=== PATIENT | female | born 1965 | race Caucasian/White ===

== ENCOUNTER 2019-08-25 18:14 | Emergency (ER) | payer MEDICARE, MEDICAID, SELFPAY ==
[2019-08-25 18:22] VITALS: BP 136/79; PULSE 78; RESP 16; TEMP 36.6; O2SAT 100
--- NOTE | 2019-08-25 18:57 | ED.GENADULT ---
HPI - General Adult General Chief complaint: Upper Respiratory Infection Stated complaint: SORE THROAT/EARACHE Time Seen by Provider: 08/25/19 18:40 Source: patient Mode of arrival: ambulatory Limitations: no limitations History of Present Illness HPI narrative: 54-year-old female presents for evaluation of sore throat, left ear pain, cough, clear drainage, body aches that is been present for 3 days. She has not used any medications for this. She has history of MS. She has been exposed to sick contacts at work. Did not get a flu shot this season. Non-smoker, denies any other medical problems. Denies any shortness of breath, chest pain, wheezing, headache, rash, abnormal swelling. Related Data Home Medications Medication Instructions Recorded Confirmed Gilenya 08/25/19 baclofen mg 08/25/19 magnesium oxide 08/25/19 paroxetine HCl mg PO 08/25/19 topiramate 08/25/19 08/25/19 Allergies Allergy/AdvReac Type Severity Reaction Status Date / Time codeine Allergy Unknown Rash Unverified 08/25/19 18:25 prednisone Allergy Rash Verified 08/25/19 18:25 Review of Systems Review of Systems: Narrative: CONSTITUTIONAL: Denies fever, chills, weight loss, or sweats. EYES: Denies visual changes, redness, or discharge. ENT: Reports rhinorrhea, congestion, sore throat, left otalgia. CARDIOVASCULAR: Denies chest pain, palpitations, or edema. RESPIRATORY: Denies dyspnea. Reports cough GASTROINTESTINAL: Denies abdominal pain, nausea, vomiting, or diarrhea. GENITOURINARY: Denies dysuria, hematuria, urinary frequency, malordous urine SKIN: Denies rash or itching. MUSCULOSKELETAL: Denies back pain, joint pain, swelling. Reports myalgias NEUROLOGIC: Denies headache, numbness, or weakness. All systems reviewed & are unremarkable except as noted in HPI and below [facility] Family History Family History (Updated 02/09/16 @ 23:19 by DOCTOR UNKNOWN) Mother Family history of chronic obstructive pulmonary disease Grandparent Carcinoma of colon Family history of malignant neoplasm of breast Father Family history of lung cancer Other Family history of malignant neoplasm Family history of malignant neoplasm of ovary Social History Social History Alcohol intake: never Comments At the time of my signature, I agree with nursing past medical, surgical, social and family history. There is no relevant family history pertinent to the presenting complaint. Exam Narrative: Exam Narrative: GENERAL: No distress, well appearing, well nourished, alert and calm HEAD: Normocephalic, atraumatic. No sinus tenderness noted EYES: Pupils equal, round. Extraocular movements intact. Conjunctivae without redness or drainage. EARS: Right tympanic membranes without erythema. TM landmarks intact with good light reflex. Ear canals without discharge. Left tympanic membrane with erythema, bulging, distorted landmarks and light reflex. NOSE: Nares patent. Nasal turbinates inflamed. No nasal discharge MOUTH: Mucous membranes moist. No lesions. No cyanosis. Dentition grossly normal. THROAT: Oropharynx with signs erythema.no exudates or lesions. Tonsils not enlarged. NECK: Supple. No lymphadenopathy. RESPIRATORY: Airway patent. Chest clear to auscultation bilaterally. Breath sounds equal bilaterally. No retractions. CARDIOVASCULAR: Regular rate and rhythm. No murmurs, rubs, gallops, or clicks. Capillary refill <2 seconds. SKIN: Color normal. Warm and dry. No rashes. NEURO: Alert. Motor intact in all extremities. Muscle tone normal. Course Course Emergency Course: Obtained strep swab. Vital Signs Vital signs: Vital Signs Temperature 97.9 F 08/25/19 18: Pulse Rate 78 08/25/19 18:22 Respiratory Rate 16 08/25/19 18: Blood Pressure 136/79 08/25/19 18:22 Pulse Oximetry 100 08/25/19 18:22 Temperature 97.9 F 08/25/19 18:22 Pulse Rate 78 08/25/19 18:22 Respiratory Rate 16 08/25/19 18:22 Blood Pressure 136/79 02
== END 2019-08-25 19:07 | disposition home or self-care (01) ==
PROVIDERS: Emergency Provider Nurse Practitioner
DX: B34.9 Viral infection, unspecified (principal); H66.92 Otitis media, unspecified, left ear; G35 Multiple sclerosis
CPT/HCPCS: 87081; 87880; 99213; G0463